=== PATIENT | female | born 1970 | race African-American/Black ===

== ENCOUNTER → 2019-09-20 12:54 | Outpatient (CLI) | payer OTHER, SELFPAY ==
--- NOTE | ~2019-09-20 | MR_ITS ---
EXAMINATION: MR knee RT w con DATE: 09/20/2019 14:57 INDICATION: Meniscal tear. Right knee pain. TECHNIQUE: Magnetic resonance imaging (MRI) of the right knee was performed without intravenous contr ast. Sequences included coronal PD-weighted FSE, coronal PD-weighted FS FSE, sagittal T2-weighted FS E, sagittal PD-weighted FS FSE and axial PD weighted fat saturated FSE. COMPARISON: None. FINDINGS: Medial compartment: Complex tear of the body of the medial meniscus beginning along the superior articular surface at the anterior body and extending an oblique longitudinal fashion across the free edge to extend to the in ferior articular surface at the posterior body. Additional complex tear involving the inferior articu lar surface and free edge of the posterior horn which appears small which merits and sequela of prior partial meniscectomy. There is deep chondral ulceration along the anterior weightbearing medial femo ral condyle with chondral surface regularity and mild cortical irregularity with minimal subarticular edema. Partial-thickness cartilage loss along the medial tibial plateau with more focal deep fissuri ng without degenerative subchondral changes at the central aspect of the medial tibial plateau. Small marginal osteophytes are present. Lateral compartment: Complex tear of the body and posterior horn of the lateral meniscus with likely longitudinal oblique tear plane extending to the inferior articular surface near the free edge with additional fraying and truncation along the of the contour of the free edge as well as secondary small tear planes extendin g to the inferior articular in the more peripheral body and posterior horn. Small region of mild part ial thickness cartilage loss with chondral surface regularity along the medial most aspect of the lat eral tibial plateau along the shoulder the intercondylar eminence. Patellofemoral compartment: Partial-thickness patellar cartilage loss most prominent along the apical ridge. There is superimpose d deep chondral fissuring at the medial facet and apical ridge and shallow fissuring involving less t tarango 50% the cartilage thickness at the lateral facet. No degenerative subarticular changes. Deep coral dral fissuring at the trochlear groove and deep ulceration involving greater than 50% of the cartilag e thickness at the central aspect of the medial trochlea. Lateral trochlear cartilage is relatively p reserved. Ligaments and tendons: Anterior and posterior cruciate ligaments are normal. The medial collateral ligament and fibular wiley ateral ligament complex are normal. There are some laxity to the normal patellar tendon with narrow b ands of magic angle artifact extending across the tendon. Quadriceps tendon is normal. The visualized medial and lateral hamstring tendons as well as the iliotibial band are normal. Fluid: No loose osteochondral bodies identified. Contrast extends into a moderate-sized Monroy's cyst. No bur sitis or other abnormal fluid collections. Osseous/other: Normal marrow signal aside from the minimal subarticular edema along the medial femoral condyle. No f racture or pathologic marrow replacing process. IMPRESSION: 1. Residual/recurrent complex tears of the medial and lateral menisci. 2. 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 3. Moderate-sized Monroy's cyst. Reviewed, dictated and finalized at location A.
--- NOTE | ~2019-09-20 | XR_ITS ---
EXAMINATION: XR fl inj knee RT for MR/CT DATE: 09/20/2019 14:25 INDICATION: Right knee pain. Meniscal tear with prior surgery. TECHNIQUE: A time-out was performed to verify the patient's name, date of , and procedure to b e performed. The procedure including the risks, benefits, and alternatives was discussed with the pat ient. Risks discussed included bleeding and infection. The patient understood the risks and agreed to proceed. The skin overlying the right knee joint was prepped and draped in usual sterile fashion. Anesthetic was administered with 1% lidocaine subcutaneously. A 22 G needle was advanced under fluor oscopic guidance into the joint. Injection of 0.6 mL of Omnipaque 240 confirmed intra-articular posi tion of the needle. Subsequently, injectate consisting of 40 mL of 5:1:3 mixture of sterile saline:O mnipaque 240:1% lidocaine mixed 200:1 with 529 mg/mL Multihance gadolinium contrast was injected with intermittent fluoroscopy confirming intra-articular administration. The needle was removed and the e ntry site was cleaned and dressed. There were no immediate complications. Fluoroscopy exposure time was 0.1 minutes. The total number of images was 7. FINDINGS: Real-time fluoroscopy demonstrates the needle in the right knee joint. IMPRESSION: 1. Right knee injection of a dilute gadolinium contrast mixture for MRI arthrogram which will be dict ated separately. Reviewed, dictated and finalized at location A. IMPRESSION: 1. Right knee injection of a dilute gadolinium contrast mixture for MRI arthrog steff which will be dictated separately.
== END ==
DX: M25.561 Pain in right knee (principal); S83.231A Complex tear of medial meniscus, current injury, right knee, initial encounter; S83.271A Complex tear of lateral meniscus, current injury, right knee, initial encounter; M17.11 Unilateral primary osteoarthritis, right knee; M94.261 Chondromalacia, right knee; M71.21 Synovial cyst of popliteal space [Baker], right knee
CPT/HCPCS: 73722; 77002; A9577; Q9966